=== PATIENT | male | born 1970 | race Hispanic/Latino ===

== ENCOUNTER 2018-01-10 22:50 | Emergency (ER) | payer SELFPAY ==
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
[2018-01-10] MEDS ORDERED: Lidocaine 1% w/Epinephrine 1:100K 20 ML VIAL ONE (23:45)
[2018-01-10] MEDS ORDERED: Adacel (T-DAP) 0.5 ML VIAL ONE (23:46)
[2018-01-10] MEDS ORDERED: Lidocaine 1% PF 5 ML VIAL ONE (23:50)
[2018-01-11] MEDS ORDERED: CEFAZOLIN/Water 2 GM/20 ML SYRINGE ONE (00:31)
== END 2018-01-11 01:10 | disposition home or self-care (01) ==
LOC: EDBD 22:50 → ERS 22:50
DX: S06.0X0A Concussion without loss of consciousness, initial encounter (principal); S01.311A Laceration without foreign body of right ear, initial encounter; S01.81XA Laceration without foreign body of other part of head, initial encounter; Y08.89XA Assault by other specified means, initial encounter; Z23 Encounter for immunization
CPT/HCPCS: 12013; 70450; 90471; 90715; 96374; J2001